=== PATIENT | male | born 1980 | race Caucasian/White ===

== ENCOUNTER 2024-11-24 11:37 | Inpatient (IN) | payer BC ==
[~2024-11-24] VITALS: Ht 177.8 cm; Wt 77.3 kg
[~2024-11-24 11:37] MED LIST: MULTIVITAMINS1 EAC7 PO; NORCO 5-325 TA1 EACH PO
[2024-11-24 13:10] LABS: INFLUENZA B NAA NEGATIVE (NEGATIVE); RESPIRATORY SYNCYTIAL VIR NAA NEGATIVE (NEGATIVE)
[2024-11-24] MEDS ORDERED: ALBUTEROL/IPRATROPIUM 3 ML NEB INH ONE (13:30)
[2024-11-24] MEDS ORDERED: methylPREDNISolone SOD SUCC 125 MG/2 ML VIAL IV ONE (13:30)
[2024-11-24 13:41] LABS: HEMATOCRIT 37.7 % (35.0-50.0); HEMOGLOBIN 12.7 g/dL (12.0-18.0); MCH 30.4 (27-36); MCHC 33.8 g/dl (30-36); MCV 90.2 fl (81-99); PLATELET COUNT 389 K/uL (140-440); RBC 4.18 M/ul (4.3-5.7); RDW 12.8 (10.5-15.0)
[2024-11-24 13:53] LABS: EOSINOPHILS, MANUAL DIFF 1; LYMPHOCYTES, MANUAL DIFF 14; MONOCYTES, MANUAL DIFF 3; NEUTROPHILS, MANUAL DIFF 82
[2024-11-24 14:01] LABS: ALBUMIN 2.8 g/dL (3.4-5.0); ALBUMIN/GLOBULIN RATIO 0.53 (1.1-2.4); ANION GAP 9.5 (7-21); BILIRUBIN, TOTAL 0.5 ng/dL (0.2-1.0); BUN/CREATININE RATIO 6.79 (6.0-28.6); CREATININE, SERUM 1.03 mg/dL (0.70-1.30); POTASSIUM 4.5 mmol/L (3.5-5.1); PROTEIN, TOTAL 8.1 g/dL (6.4-8.2)
[2024-11-24] MEDS ORDERED: CEFEPIME HCL/D5W 2 GM/100 ML PIGGYBACK IV ONE (15:15)
[2024-11-24] MEDS ORDERED: CEFTRIAXONE/SODIUM CHLORIDE 2 GM/100 ML PIGGYBACK IV ONE (15:15)
[2024-11-24] MEDS ORDERED: AZITHROMYCIN/DEXTROSE 500 MG/250 ML PIGGYBACK IV ONE (15:15)
[2024-11-24] MEDS ORDERED: predniSONE 20 MG TAB PO SCH (16:08)
[2024-11-24] MEDS ORDERED: LACTATED RINGER'S 1,000 ML IV SCH (16:15)
[2024-11-24] MEDS ORDERED: ondansetron HCL 4 MG/2 ML VIAL IV PRN (16:15)
[2024-11-24] MEDS ORDERED: ACETAMINOPHEN 325 MG TAB PO PRN (16:15)
[2024-11-24] MEDS ORDERED: GUAIFENESIN/DEXTROMETHORPHAN 5 ML SYRUP PO PRN (16:15)
[2024-11-24 17:08] VITALS: BP 135/74
[2024-11-24] MEDS ORDERED: CEFEPIME HCL/D5W 2 GM/100 ML PIGGYBACK ONE (18:28)
--- NOTE | 2024-11-24 19:10 | NUR ---
BHAVYA Balderas in room. Family visiting. Urinal emptied and documented.
[2024-11-24 19:24] VITALS: BP 135/74
--- NOTE | 2024-11-24 19:26 | NUR ---
REPORT GIVEN TO BHAVYA LION. PT WITHOUT C/O DURING SHIFT. O2 REMAINS IN PLACE AT 1LNC. IVF INFUSING TO L AC. FAMILY AT BEDSIDE. CALL SHELTON IN REACH, BED IN LOW POSITION AND LOCKED, SIDERAILS UP X2
--- NOTE | 2024-11-24 19:35 | NUR ---
REPORT RECEIVED FROM BHAVYA OLIVEIRA. pt RESTING IN BED AWAKE, 1L OXYGEN BY NC IN PLACE. NO DISTRESS NOTED. FAMILY IN ROOM. CALL LIGHT IN REACH. IV ANTIBIOTIC INFUSING WNL.
[2024-11-24] MEDS ORDERED: ALBUTEROL/IPRATROPIUM 3 ML NEB INH SCH (20:00)
[2024-11-24 20:04] VITALS: BP 125/76
--- NOTE | 2024-11-24 20:16 | NUR ---
pt AWAKE WATCHING TV. IV SITE FLUSHED WNL. IVF INFUSING ORDERED. ASSESSMENT COMPLETE. LUNG SOUNDS CLEAR THROUGHOUT ALL LOBES. SPO2 92% WITH 1L OXYGEN BY NC IN PLACE. PRN ROBITUSSIN ADMINISTERED. ICE WATER REFILLED. CALL LIGHT IN REACH.
--- NOTE | 2024-11-24 20:37 | EKG ---
[facility] [address] [place], [place] [address] Signed Normal sinus rhythm Normal ECG No previous ECGs available Confirmed by Casper Jung DO ([id number]) on 11/24/2024 8:37:39 PM Electronically Signed By: CASPER JUNG DO 11/24/242036 PATIENT NAME: AMOS VEGAS Electrocardiogram DATE OF : 76 PHYSICIAN: CASPER JUNG DO REPORT #: [id number] REPORT IS CONFIDENTIAL AND NOT TO BE RELEASED WITHOUT AUTHORIZATION
[2024-11-24] MEDS ORDERED: MELATONIN 3 MG TAB PO PRN (21:00)
[2024-11-24] MEDS ORDERED: CEFEPIME HCL/D5W 2 GM/100 ML PIGGYBACK IV SCH (22:00)
--- NOTE | 2024-11-24 22:20 | NUR ---
CHECKED ON pt. RESTING IN BED WITH 1L OXYGEN BY NC IN PLACE, NO DISTRESS NOTED.
--- NOTE | 2024-11-24 22:26 | NUR ---
IV PUMP ALARMING. ISSUE RESOLVED. FRESH WATER PROVIDED AND URINAL EMPTIED. NO FURTHER NEEDS. CALL LIGHT IN REACH.
[2024-11-24 22:50] VITALS: BP 125/76
[2024-11-25] MEDS ORDERED: CEFEPIME HCL 1 GM in DEXTROSE 5% 100 ML IV SCH
--- NOTE | 2024-11-25 00:05 | NUR ---
pt RESTING IN BED WITH EYES CLOSED, BREATHING UNLABORED. NO DISTRESS NOTED.
--- NOTE | 2024-11-25 01:00 | NUR ---
PT CALLED, REQUESTED FRESH ICE WATER, GIVEN. NOTED ROOM HOT, ASK ABOUT ROOM TEMP, HE REQUESTED TEMP TO BE TURNED TO 70. NO OTHER NEEDS AT THIS TIME.
[2024-11-25 02:13] VITALS: BP 123/70
[2024-11-25] MEDS ORDERED: CEFEPIME HCL/D5W 2 GM/100 ML PIGGYBACK IV SCH ×2 (03:00)
--- NOTE | 2024-11-25 03:14 | NUR ---
pt RESTING IN BED, EYES CLOSED, BREATHING UNLABORED. IV SITE ASSESSED, IV ANTIBIOTIC INFUSING WNL. CALL LIGHT IN REACH. NO DISTRESS NOTED.
[2024-11-25 05:43] VITALS: BP 120/85
--- NOTE | 2024-11-25 05:46 | NUR ---
SANITARY PLUMBER OBTAINED VITALS. NO NEW OUTPUT AT THIS TIME. PT STATES NO NEEDS AND CALL LIGHT WITHIN REACH.
[2024-11-25 05:55] LABS: BASOPHILS 0.3 % (0-2); HEMATOCRIT 37.3 % (35.0-50.0); HEMOGLOBIN 12.9 g/dL (12.0-18.0); LYMPHOCYTES 7.4 % (24-44); MCH 31.4 (27-36); MCHC 34.5 g/dl (30-36); MONOCYTES 3.9 % (0-12); NEUTROPHILS 88.4 % (39-80); PLATELET COUNT 386 K/uL (140-440); RBC 4.09 M/ul (4.3-5.7); RDW 12.5 (10.5-15.0)
--- NOTE | 2024-11-25 05:59 | NUR ---
CHECKED ON pt. IV ANTIBIOTIC INFUSING WNL. RESPIRATIONS EQUAL AND UNLABORED. 1L OXYGEN BY NC ON. NO DISTRESS NOTED. CALL LIGHT IN REACH.
[2024-11-25 06:00] VITALS: BP 120/85
[2024-11-25 06:11] LABS: ANION GAP 9.6 (7-21); BUN/CREATININE RATIO 12.63 (6.0-28.6); CALCIUM 9.3 mg/dL (8.5-10.1); CREATININE, SERUM 0.95 mg/dL (0.70-1.30); MAGNESIUM 2.7 mg/dL (1.8-2.4); POTASSIUM 4.6 mmol/L (3.5-5.1)
--- NOTE | 2024-11-25 07:35 | NUR ---
PT REPORT RECIEVED FROM INDUSTRIAL DESIGNER RN. PT LAYING IN BED WITH EYES CLOSED AND CHEST RISE EQUAL BILAT. RN REPORTED PT SLEPT MOST OF THE NIGH. PT CALL LIGHT WITHIN REACH.
[2024-11-25] MEDS ORDERED: CEFEPIME HCL/D5W 1 GM/100 ML PIGGYBACK IV SCH (08:00)
--- NOTE | 2024-11-25 08:22 | NUR ---
PT LAYING IN BED WITH EYES OPEN, PT REPORTED HE SLEPT WELL AND IS FEELING MUCH BETTER THIS MORNING AND IS HOPEFULL TO BE RELESED TODAY. PT CALL LIGHT WITHIN REACH.
--- NOTE | 2024-11-25 08:33 | NUR ---
RNs ANSELMO and Del in room doing assessment.
[2024-11-25] MEDS ORDERED: predniSONE 20 MG TAB PO SCH (09:00)
[2024-11-25] MEDS ORDERED: AZITHROMYCIN 250 MG TAB PO SCH (09:00)
[2024-11-25] MEDS ORDERED: ALEVE220 MG PO (09:05)
[2024-11-25] MEDS ORDERED: VENTOLIN HFA18 GM INH (09:05)
[2024-11-25] MEDS ORDERED: DAY TIME COLD-296 ML PO (09:06)
--- NOTE | 2024-11-25 09:06 | NUR ---
MED REC COMPLETE
--- NOTE | 2024-11-25 09:14 | NUR ---
RA TRIAL 88% ON RA. AFTER DB+C 95% ON RA, AFTER VIBRATORY PEP 96%. AFTER EXERTION WENT FROM 88 TO 95%.
[2024-11-25 09:57] VITALS: BP 131/77
[2024-11-25 10:00] VITALS: BP 131/77
--- NOTE | 2024-11-25 10:18 | NUR ---
UR CLINICAL REVIEW: [facility]- MEETS INPT CRITERIA FOR HEART FAILURE AND PNEUMONIA. MEETS DC GUIDELINES. [facility] PPO INPT 11/24/24 @ 1606 ORDER MATCHES REG AUTH 11/24/24-11/29/24 FROM [facility]. WILL FAX REQUESTED CLINICALS VIA [employer]. PLAN TO DC TO HOME TODAY. 11/27/24
[2024-11-25] MEDS ORDERED: GUAIFENESIN DM S5 ML PO (10:21)
[2024-11-25] MEDS ORDERED: PREDNISONE20 MG PO (10:21)
[2024-11-25] MEDS ORDERED: LEVOFLOXACIN750 MG PO (10:22)
[2024-11-25] MEDS ORDERED: AZITHROMYCIN500 MG PO (10:22)
[2024-11-25] MEDS ORDERED: SYMBICORT 16010.2 GM INH (10:23)
--- NOTE | 2024-11-25 10:43 | NUR ---
Kiana from case management in room. More ice water requested and given.
--- NOTE | 2024-11-25 11:00 | NUR ---
Spoke with Elijah. He lives in a sober living home in [place]. He drives, does not use any DME. Will return to the [facility] on dc. He does nothave a pcp and would like to use [facility]. I called and pt is scheduled to see Lupis THOMAS on Dec 07 at 10 am. Pt denies other needs and will dc to home today.
--- NOTE | 2024-11-25 11:03 | NUR ---
PT SITTING UP IN BED WAITING FOR DC. PT WAS INFORMED DC WOULD BE BETWEEN 1200/1230 HOPEFULLY. PT WAS AGREEABLE, PT HAS NO CONCERNS AT THIS TIME.
[2024-11-25] MEDS ORDERED: PHARMACY RENAL DOSE ADJUSTMENT 1 DOSE MISC PO SCH (12:00)
== END 2024-11-25 12:00 | disposition home or self-care (01) | DRG 193 ==
LOC: ED 11:37 → MS 16:29
PROVIDERS: Emergency Medicine; ADMIT Student in an Organized Health Care Education/Training Program; ATTEND Student in an Organized Health Care Education/Training Program
DX: J18.9 Pneumonia, unspecified organism (principal); J96.01 Acute respiratory failure with hypoxia; J44.0 Chronic obstructive pulmonary disease with (acute) lower respiratory infection; J44.1 Chronic obstructive pulmonary disease with (acute) exacerbation; Z87.891 Personal history of nicotine dependence; Z99.81 Dependence on supplemental oxygen; Z98.890 Other specified postprocedural states
CPT/HCPCS: 36415; 71260; 80048; 80053; 83605; 83735; 83880; 84484; 85025; 87502; 93005; 93010; 94640; 94667; 94760; 99285-25; A9270; J0456; J0692; J2919; J7121; J7512; Q9967; U0002

== ENCOUNTER 2025-04-08 08:13 | Emergency (ER) | payer OTHER ==
[~2025-04-08] VITALS: Ht 177.8 cm; Wt 75.7 kg
--- OUTSIDE RECORDS SUMMARY | ~2025-04-08 | XMS | Continuity of Care Document ---
Demographics + + + | Address | [address] | | | [place] [address] | + + + | Preferred Language | Unknown | + + + | Marital Status | Unknown | + + + | Lutheran Affiliation | Unknown | + + + | Race | White | + + + | Ethnic Group | Not or | + + + Author + + + | Author | [facility] | + + + | Organization | [facility] | + + + | Address | [address] | | | [place] [address] | + + + | Phone | | + + + Care Team Providers + + + + | Care Portfolio Analyst Name | Role | Phone | + + + + Unavailable | Unavailable | + + + + Allergies No information. Encounters No information. Functional Status No information. Immunizations No information. Medications No information. Problems + + + + | date | description | facility | + + + + | 2025-03-21 21:16:51 | Other long term care administrator (current) | [facility] | | | drug therapy | | + + + + Procedures No information. Results/Labs No information. Social History +--------+ + + | date | description | facility | +--------+ + + Vital Signs No information."
[~2025-04-08 08:13] MED LIST changes: +ALEVE220 MG PO; +AZITHROMYCIN500 MG PO; +DAY TIME COLD-296 ML PO; +GUAIFENESIN DM S5 ML PO; +LEVOFLOXACIN750 MG PO; +PREDNISONE20 MG PO; +SYMBICORT 16010.2 GM INH; +VENTOLIN HFA18 GM INH
[2025-04-08 09:07] VITALS: BP 165/112
[2025-04-10] MEDS ORDERED: HYDROCODON-ACE1 EA10 PO (17:48)
[2025-04-10] MEDS ORDERED: AMOX TR-K CLV1 EAC1 PO (17:48)
== END 2025-04-08 09:07 | disposition home or self-care (01) ==
LOC: ED 08:13
DX: S20.211A Contusion of right front wall of thorax, initial encounter (principal); F17.200 Nicotine dependence, unspecified, uncomplicated; Y04.8XXA Assault by other bodily force, initial encounter; Z79.899 Other long term (current) drug therapy
CPT/HCPCS: 71046; 99284-25

== ENCOUNTER 2025-04-10 16:30 | Emergency (ER) | payer OTHER | END 2025-04-10 17:59 | disposition home or self-care (01) | LOC: ED 16:30 | DX: S02.31XA Fracture of orbital floor, right side, initial encounter for closed fracture (principal); S02.32XA Fracture of orbital floor, left side, initial encounter for closed fracture; S02.842A Fracture of lateral orbital wall, left side, initial encounter for closed fracture; S02.40CA Maxillary fracture, right side, initial encounter for closed fracture; Y04.2XXA Assault by strike against or bumped into by another person, initial encounter; F17.200 Nicotine dependence, unspecified, uncomplicated ==

== ENCOUNTER 2025-08-22 16:36 | Emergency (ER) | payer OTHER ==
[~2025-08-22] VITALS: Ht 177.8 cm; Wt 77.0 kg
[~2025-08-22 16:36] MED LIST changes: +AMOX TR-K CLV1 EAC1 PO; +HYDROCODON-ACE1 EA10 PO
[2025-08-22 17:47] VITALS: BP 141/87
== END 2025-08-22 17:50 | disposition home or self-care (01) ==
LOC: ED 16:36
DX: S29.9XXA Unspecified injury of thorax, initial encounter (principal); F17.200 Nicotine dependence, unspecified, uncomplicated; X50.0XXA Overexertion from strenuous movement or load, initial encounter
CPT/HCPCS: 71045; 99283-25

== ENCOUNTER 2025-09-26 10:24 | Emergency (ER) | payer OTHER ==
[~2025-09-26] VITALS: Ht 177.8 cm; Wt 77.5 kg
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
[2025-09-26 12:12] VITALS: BP 136/100
== END 2025-09-26 12:12 | disposition home or self-care (01) ==
LOC: ED 10:24
DX: S22.32XA Fracture of one rib, left side, initial encounter for closed fracture (principal); F17.200 Nicotine dependence, unspecified, uncomplicated; W06.XXXA Fall from bed, initial encounter
CPT/HCPCS: 71045; 99283-25